=== PATIENT | female | born 1960 | race Caucasian/White ===

== ENCOUNTER → 2021-04-14 | Day surgery (SDC) | payer OTHER | END | disposition home or self-care (01) | LOC: JRADUS-SUR 08:43 | PROVIDERS: ATTEND Internal Medicine Hematology & Oncology | PROC: 0H9U3ZX Drainage of Left Breast, Percutaneous Approach, Diagnostic (ICD-10-PCS; principal; 2021-04-14) | DX: D24.2 Benign neoplasm of left breast (principal) | CPT/HCPCS: 19083; 87899; A4648 ==